=== PATIENT | male | born 1970 | race Caucasian/White ===

== ENCOUNTER 2019-08-16 12:14 | Emergency (ER) | payer OTHER ==
[~2019-08-16] VITALS: Ht 180.3 cm; Wt 88.9 kg
[~2019-08-16 12:14] MED LIST: CEPH500 PO; CHLO25 PO; HYDACE5 PO; OMEP20ER PO; RABE20 PO; RXHYDACE PO; RXONDA4ODT MM; RXSULTRIDS PO; SULTRIDS PO
[2019-08-16] MEDS ORDERED: GABA300 PO (13:28)
[2019-08-16] MEDS ORDERED: OXYC1TAB11 PO (16:15)
== END 2019-08-16 17:21 | disposition home or self-care (01) ==
LOC: ER 12:14
DX: M54.16 Radiculopathy, lumbar region (principal); Z79.899 Other long term (current) drug therapy; F32.9 Major depressive disorder, single episode, unspecified; I10 Essential (primary) hypertension; F17.210 Nicotine dependence, cigarettes, uncomplicated
CPT/HCPCS: 96372; 99283-25; J1170; J1885

== ENCOUNTER 2020-05-29 21:51 | Emergency (ER) | payer OTHER ==
[~2020-05-29] VITALS: Ht 185.4 cm; Wt 88.5 kg
[~2020-05-29 21:51] MED LIST changes: +GABA300 PO; +OXYC1TAB11 PO
[2020-05-29] MEDS ORDERED: Aspir 8181 MG PO (22:27)
[2020-05-29] MEDS ORDERED: OMEP20ER PO (22:27)
[2020-05-29 22:29] LABS: BASOPHILS ABSOLUTE AUTO 0.08 K/mm3 (0.00-0.23); BASOPHILS PERCENT AUTO 1 % (0-2); EOSINOPHILS ABSOLUTE AUTO 0.11 K/mm3 (0.00-0.68); EOSINOPHILS PERCENT AUTO 1 % (0-6); Hematocrit 49.3 % (37.0-53.0); Hemoglobin 16.8 g/dL (13.5-17.5); IMMATURE GRAN ABSOLUTE AUTO 0.02 K/mm3 (0.00-0.10); IMMATURE GRAN PERCENT AUTO 0 % (0-1); LYMPHOCYTES PERCENT AUTO 56 % (21-46); MONOCYTES ABSOLUTE AUTO 0.63 K/mm3 (0.16-1.47); MONOCYTES PERCENT AUTO 7 % (4-13); Mean Corpuscular HGB 32.1 pg (26.0-34.0); Mean Corpuscular HGB Conc 34.1 g/dL (31.5-36.5); Mean Corpuscular Volume 94 fL (80-100); Mean Platelet Volume 10.4 fL (9.1-12.4); NEUTROPHILS ABSOLUTE AUTO 3.12 K/mm3 (1.96-9.15); NEUTROPHILS PERCENT AUTO 34 % (41-73); Platelet Count 185 K/mm3 (150-400); RDW Coefficient Variation 11.9 % (11.7-14.2); RDW Standard Deviation 41.2 fL (35.1-46.3); Red Blood Cell Count 5.24 M/mm3 (4.30-5.90); White Blood Cell Count 9.06 K/mm3 (4.00-11.30)
[2020-05-29 22:49] LABS: Alanine Aminotransfer (ALT/SGP 57 U/L (12-78); Albumin, Blood 4.1 g/dL (3.4-5.0); Albumin/Globulin Ratio 1.1 (0.8-1.8); Alk Phos 124 U/L (50-136); Anion Gap 7 mmol/L (6-16); Aspartate Aminotrans (AST/SGOT 51 U/L (12-37); Bilirubin, Total 0.3 mg/dL (0.1-1.0); Blood Urea Nitrogen 5 mg/dL (8-24); Bun/Creatinine Ratio 5.9 (12.0-20.0); CO2, Blood 24 mmol/L (21-32); Chloride, Blood 110 mmol/L (98-108); Creatinine, Blood 0.84 mg/dL (0.60-1.20); Globulin, Blood 3.9 g/dL (2.2-4.0); Glomerular Filtration Rate >60 (60-); Glucose, Blood 96 mg/dL (70-99); Sodium, Blood 141 mmol/L (136-145); Troponin I <0.015 ng/mL (0.000-0.040)
[2020-05-29 23:21] LABS: U Amphetamine Screen Not Detected; U Barbituate Screen Not Detected; U Benzodiazapine Screen Not Detected; U Buprenorphine Screen Not Detected; U Cannabinoids Screen Not Detected; U Cocaine Screen Not Detected; U Methadone Screen Not Detected; U Methamphetamine Screen Not Detected; U Opiates Screen Not Detected; U Oxycodone Screen Not Detected; U Phencyclidine Screen Not Detected; U Propoxyphene Screen Not Detected
[2020-05-30] MEDS ORDERED: ALBU90OI INH (00:37)
[2020-05-30] MEDS ORDERED: PRED20 PO (00:37)
== END 2020-05-30 00:44 | disposition home or self-care (01) ==
LOC: ER 21:51
PROVIDERS: Emergency Medicine
DX: R07.9 Chest pain, unspecified (principal); F10.129 Alcohol abuse with intoxication, unspecified; Z79.82 Long term (current) use of aspirin; I10 Essential (primary) hypertension; F32.9 Major depressive disorder, single episode, unspecified; F17.210 Nicotine dependence, cigarettes, uncomplicated
CPT/HCPCS: 36415; 71046; 80053; 84484; 85025; 93005; 93010; 94644; 96361; 96374; 99285-25; A9270-GY; G0480; J2930; J7030

== ENCOUNTER 2020-06-13 20:09 | Emergency (ER) | payer OTHER ==
[~2020-06-13] VITALS: Ht 180.3 cm; Wt 79.4 kg
[~2020-06-13 20:09] MED LIST changes: +ALBU90OI INH; +Aspir 8181 MG PO; +PRED20 PO
[2020-06-13] MEDS ORDERED: Robaxin-750750 MG PO (21:20)
[2020-06-13] MEDS ORDERED: IBUP800 PO (21:20)
== END 2020-06-13 21:56 | disposition home or self-care (01) ==
LOC: ER 20:09
DX: M54.5 Low back pain (principal); I10 Essential (primary) hypertension; F17.210 Nicotine dependence, cigarettes, uncomplicated; Z79.82 Long term (current) use of aspirin; Z79.899 Other long term (current) drug therapy
CPT/HCPCS: 96374; 96375; 99284-25; J0515; J1885